=== PATIENT | male | born 1930 | race Caucasian/White ===

== ENCOUNTER 2016-11-08 09:59 | Emergency (ER) | payer MEDICARE, BC ==
[~2016-11-08 09:59] MED LIST: AMOX TR-K CLV1 EAC4 PO; CRESTOR40 MG/TAB PO; DOXYCYCLINE HY100 M5 PO; FLOMAX0.4 M1 PO; OCUVITE WITH L1 EACH PO; PANTOPRAZOLE SO40 M3 PO; REMERON15 M1 PO; TOPROL XL50 M1 PO; TRAZODONE HCL50 M1 PO; ZITHROMAX250 M1 PO
== END 2016-11-08 12:17 ==
LOC: EDMED 09:59
DX: S86.212A Strain of muscle(s) and tendon(s) of anterior muscle group at lower leg level, left leg, initial encounter (principal); I25.2 Old myocardial infarction; I10 Essential (primary) hypertension; X58.XXXA Exposure to other specified factors, initial encounter